=== PATIENT | male | born 1955 | race Caucasian/White ===

== ENCOUNTER → 2024-05-12 09:38 | Outpatient (REF) | payer OTHER, SELFPAY | LOC: PAVMRI 09:38 | PROVIDERS: ATTENDING PHYSICIAN Neurological Surgery | DX: D33.3 Benign neoplasm of cranial nerves (principal) | CPT/HCPCS: 70553; A9575 ==

== ENCOUNTER 2024-06-14 11:06 | Emergency (ER) | payer OTHER, SELFPAY ==
[2024-06-14 11:08] VITALS: BP 146/81
[2024-06-14 11:22] LABS: % Basophils 0.6 % (0-2); % Eosinophils 0.9 % (0-6); % Immature Granulocytes 0.2 % (0-0.5); % Lymphocytes 19.9 % (20.5-51.1); % Monocytes 10.6 % (1.7-9.3); % Neutrophils 67.8 % (42.2-75.2); Absolute Basophils 0.1 10^3/uL (0-0.2); Absolute Eosinophils 0.1 10^3/uL (0-0.7); Absolute Monocytes 1.1 10^3/uL (0.1-0.6); Absolute Neutrophils 6.8 10^3/uL (1.4-6.5); Hematocrit 46.9 % (39.0-52.0); Hemoglobin 15.9 g/dL (13.0-18.0); Mean Corp Hgb Conc. 33.9 g/dL (33.0-37.0); Mean Corpuscular Hgb 29.7 pg (27.0-31.0); Mean Corpuscular Volume 87.7 fL (80.0-94.0); Nucleated Red Blood Cells % 0 % (-); Platelet Count 206 10^3/uL (130-400); Red Blood Cell Count 5.35 10^6/uL (4.70-6.10); Red Cell Dist. Width 13.3 % (11.5-14.5)
[2024-06-14 11:42] LABS: ALT (SGPT) 18 U/L (0-50); AST (SGOT) 23 U/L (17-59); Albumin 4.7 g/dl (3.5-5.0); Alkaline Phosphatase 84 U/L (38-126); Blood Urea Nitrogen 14 mg/dl (9-20); Calcium 9.7 mg/dl (8.4-10.2); Carbon Dioxide 27 mmol/L (22-30); Chloride 102 mmol/L (98-107); Glucose 88 mg/dl (70-99); Potassium 4.4 mmol/L (3.5-5.1); Sodium 139 mmol/L (135-145); Total Bilirubin 1.2 mg/dl (0.2-1.3); eGFR > 60.00
[2024-06-14 11:57] LABS: Lipase 134 U/L (23-300)
--- NOTE | 2024-06-14 12:25 | ED.GENMED ---
History of Present Illness
General
Chief Complaint: Abdominal Pain
Time Seen by Provider: 06/14/24 11:26
History of Present Illness
History of Present Illness:
69-year-old male with history of diabetes presenting to the emergency department for lower abdominal pain. Patient reports symptoms for the past 3 days. Does note some diarrhea. Denies nausea or vomiting. Denies any abdominal surgeries in the
past. Does note some urinary hesitancy, denies dysuria. Denies fever. Denies chest pain or difficulty breathing. Denies any blood in his stool. Denies ever having the symptoms in the past. Denies additional acute medical complaints
Phy Exam
Physical Exam
Physical Exam:
General: Well-appearing, no clinical signs of dehydration, nontoxic and in no acute distress
HEENT: protecting airway
Neck: appears supple
CV: Normal heart rate, regular rhythm
Resp: No accessory muscle use, no increased work of breathing, lungs clear to auscultation bilaterally
Abd: Soft and non-distended, mild tenderness to the suprapubic and left lower quadrant region of the abdomen without rebound or guarding
Extremities: No deformities, no swelling
Neuro: alert, no focal neurologic deficit
: deferred
Rectal: deferred
Psych: Normal affect
Skin: Intact
Course
Orders/Labs/Results
Orders:
Orders
06/14/24 11:15
Complete Blood Count/With Diff Urgent
Comprehensive Metabolic Panel Urgent
Lipase Urgent
06/14/24 11:53
CT Abd/pelvis W Iv Cont Urgent
Comment:
Reason For Exam: lower pain, suprapubic and LLQ w/diarrhea
06/14/24 11:54
Add On- LAB Urgent
Tests Added?: lipase
06/14/24 12:13
Urinalysis Reflex To Culture Urgent
Date Specimen was Collected: 06/14/24
Time Specimen was Collected: 11:59
Urine Microscopic Reflex Cult Urgent
06/14/24 15:00
Amoxicillin 875 mg/Clav 125 mg [Augmentin 875 mg/125 mg] 1 tablet PO NOW STA
Abnormal Lab Results
06/14/24 06/14/24
11:15 12:13
Absolute Neuts (auto) 6.8 H 10^3/uL
(1.4-6.5)
Absolute Monos (auto) 1.1 H 10^3/uL
(0.1-0.6)
Lymphocytes % 19.9 L %
(20.5-51.1)
Monocytes % 10.6 H %
(1.7-9.3)
Urine Ketones 2+ A
(Negative)
Ur Occult Blood Reflex 1+ A
(Negative)
Urine Glucose 4+ A
(Negative)
06/14/24 11:15
06/14/24 11:15
Vital Signs
Initial and Last Documented VS:
Initial Vital Signs
Temp Pulse Resp BP Pulse Ox
97.9 F 86 16 146/81 97
06/14/24 11:08 06/14/24 11:08 06/14/24 11:08 06/14/24 11:08 06/14/24 11:08
Last Documented Vital Signs
Temp Pulse Resp BP Pulse Ox
97.9 F 86 18 140/76 97
06/14/24 11:08 06/14/24 15:32 06/14/24 15:32 06/14/24 15:32 06/14/24 15:32
MDM/Problems Addressed
MDM/Problems Addressed:
69-year-old male with history of diabetes presenting for lower abdominal pain for 3 days. Vital signs on arrival are normal.
On exam, patient is resting comfortably, no acute distress with overall benign abdominal exam. However, does have focal tenderness to the suprapubic and left lower quadrant region of the abdomen with differential considerations being UTI versus
diverticulitis. Plan for laboratory analysis and CT abdominal imaging. Patient declining pain medication at this time
15:00 -urine without sign of infection. CT does display uncomplicated diverticulitis. Labs are unremarkable and patient remained stable. Feel stable for discharge for outpatient follow-up and outpatient antibiotic therapy given hemodynamic
stability, pain controlled, able to tolerate p.o. However, strict return precautions were communicated including any worsening of his symptoms. Patient started on Augmentin
*Critical Care Note
Total Time (30-74mins, 75-104mins- exclusive of procedures): Not Applicable
ED Attending Note
-
Portions of this chart may have been created with voice recognition software.� Occasional wrong word or��sound alike� substitutions may have occurred due to the inherent limitations of voice recognition software.
Discharge Plan
Departure
Patient Disposition: Home (Routine Discharge)
Date of Disposition: 06/14/24
Time of Disposition: 15:01
Patient with high blood pressure during this ER visit?: No
Condition: Good
Discharge Problem:
Diverticulitis of sigmoid colon
Instructions: [place] diet, Diverticulitis - Discharge instructions
Prescriptions:
New
amoxicillin-pot clavulanate 875-125 mg tablet
1 tab PO BID 10 Days Qty: 20 0RF
Referrals:
Jhon Carter PA [Family Provider] -
Activity Restrictions/Additional Instructions:
You were seen in the emergency department for lower abdominal pain
You were found to have acute uncomplicated diverticulitis. You were started on Augmentin. If your symptoms are not improving or are worsening at any point in the next 2 to 3 days, please return to the hospital for reassessment
Please follow-up closely with your primary care physician.
Return to the emergency department for any worsening of your symptoms, or any development of chest pain, difficulty breathing, abdominal pain with persistent vomiting and inability to tolerate food or liquid by mouth (concern for dehydration),
weakness, headache or confusion, fever greater than 100.4, or any additional symptoms that are concerning to you.
Thank you for choosing [facility].
Interventions
Interventions:
*Risk Screen - Suicide Last Done: 06/14/24 13:00
*General Assessment Last Done: 06/14/24 13:00
*Neglect/Abuse Screening Last Done: 06/14/24 13:00
*ED- Fall Risk Assessment Last Done: 06/14/24 13:00
*Nursing Disposition Last Done: 06/14/24 15:32
RY-Oxgaug-Prteivfbgy Assessment Last Done: 06/14/24 13:00
Discharge Date and Time
Discharge Date/Time: 06/14/24 15:32
Print Language: BENGALI
[2024-06-14 13:05] VITALS: BP 142/76
[2024-06-14 14:44] LABS: Urine Albumin Negative (Neg - Trace); Urine Bilirubin Negative (Negative); Urine Character Clear (Clear); Urine Color Yellow; Urine Glucose 4+ (Negative); Urine Ketone 2+ (Negative); Urine Leukocyte Negative (Negative); Urine Nitrite Negative (Negative); Urine Occult Blood 1+ (Negative); Urine Specific Gravity 1.015 (<1.030); Urine Urobilinogen Negative (Neg - 1+)
[2024-06-14 15:06] LABS: Urine Red Blood Cell 0-2 /HPF (0-2); Urine Squamous Cell None seen /LPF (Few); Urine White Cell None Seen /HPF (0-5)
[2024-06-14] MEDS: AUGMENTIN 875 MG/125 MG 1 TABLET PO (15:23)
[2024-06-14 15:32] VITALS: BP 140/76
== END 2024-06-14 15:32 | disposition home or self-care (01) ==
LOC: EMR 11:06
PROVIDERS: Emergency Medicine; EMERGENCY PHYSICIAN Student in an Organized Health Care Education/Training Program; FAMILY PHYSICIAN Physician Assistant
DX: K57.32 Diverticulitis of large intestine without perforation or abscess without bleeding (principal); E11.9 Type 2 diabetes mellitus without complications
CPT/HCPCS: 99284; 74177; 80053; 81003; 81015; 83690; 85025; Q9967

== ENCOUNTER → 2024-07-02 15:07 | Outpatient (REF) | payer OTHER, SELFPAY | LOC: RAD 15:07 | PROVIDERS: FAMILY PHYSICIAN Physician Assistant | DX: M17.0 Bilateral primary osteoarthritis of knee (principal) | CPT/HCPCS: 73560; 73565 ==